=== PATIENT | female | born 1950 | race Caucasian/White ===

== ENCOUNTER → 2023-01-17 | Outpatient (CLI) | payer MEDICARE, SELFPAY ==
--- NOTE | 2023-01-17 14:57 | CT_ITS ---
STUDY: CT ABDOMEN AND PELVIS WITH AND WITHOUT CONTRAST REASON FOR EXAM: Female, 72 years old. GROSS HEMATURIA RADIATION DOSAGE (If Supplied By Facility): CTDIvol = ( 26.15 ) mGy, DLP = ( 4106.19 ) mGycm TECHNIQUE: Transaxial images were obtained from the dome of the diaphragm to the symphysis pubis without oral contrast. IV 100mL Isovue-370 was administered. Sagittal and coronal images were reconstructed. Individualized dose optimization techniques were used for this CT. COMPARISON: None. FINDINGS: The visualized lung bases are unremarkable. Coronary artery calcification. Mild hepatomegaly. Questionable tiny gallstones or sludge in the gallbladder lumen. Normal spleen. Normal pancreas. Normal bilateral adrenal glands. Normal right kidney. Normal left kidney. Normal visualized stomach. Normal small intestine. There are multiple colonic diverticula consistent with diverticulosis. The appendix is visualized and appears normal. There is scattered atherosclerotic calcification of the abdominal aorta, without a demonstrated aneurysm. Normal inferior vena cava. There is borderline retroperitoneal lymphadenopathy with enlarged nodes no greater than 10mm in the short axis diameter. Normal urinary bladder. Normal abdominal wall. There are diffuse degenerative changes of the visualized lumbar spine. The patient is status post right hip replacement. CT/CT Abd/Pelvis W/WO Contrast IMPRESSION: Hepatomegaly. Sludge or gallstones seen in the gallbladder lumen. Electronically Signed: John Barajas MD at 15:29 [facility] ,
[2023-01-17 17:10] LABS: CREATININE FINGERSTICK < 0.9 mg/dL (0.55-1.02); EGFR FINGERSTICK > 60.0000 mL/min (>60)
== END | disposition home or self-care (01) ==
LOC: CT 14:54
PROVIDERS: PCP Family Medicine; Referring Provider Urology; Visit Provider Urology
DX: R31.0 Gross hematuria (principal)
CPT/HCPCS: 74178; Q9967

== ENCOUNTER 2023-05-10 09:11 | Day surgery (SDC) | payer MEDICARE, SELFPAY ==
[2023-05-10] VITALS (8 sets, daily range): BP systolic 144–196; BP diastolic 65–99; PULSE 59–66; RESP 14–16; TEMP 36.2–37.1; O2SAT 76–100; BMI 40.1
--- NOTE | 2023-05-10 | CYSPIN_PTH ---
PATIENT: AARON CAMERON LOC: [facility] [place] U#:[id number] AGE/SX: 73/F ROOM: RE05/10/[address]: Dr. Ermelinda Smith MD : 1950 BED: DIS: 05/10/2023 SPEC #: [id number] RECD: 05/10/23 12:50 STATUS: QI AZUL #: [id number] MADIE: 05/10/23 00:[address]: Ermelinda Smith DEPT: CYTOLOGY RECD BY: Dalton Fitch ENTERED: 05/10/23 12:51 SP TYPE: CYSPIN FL OTHR DR: Dr. Saad Moffett, DO Tissues: A - Urine B - Urine Procedures: Pap Stain (control) Special Stain Group II Cytospin Fluid HEADER OPERATION: Not noted PRE-OP DIAGNOSIS: Gross hematuria TISSUE SUBMITTED: A ? Left ureter for cytology, B ? Right ureter for cytology DIAGNOSIS CYTOLOGY A. Left ureter fluid for cytology (cytospin): Atypical urothelial cells (AUC), Adrienne System Category III. See comment. B. Right ureter fluid for cytology (cytospin): Atypical urothelial cells (AUC), Adrienne System Category III. See comment. SJ:ophelia 05/11/2023 COMMENT A. Red blood cells are noted. B. The specimen is cellular. Correlation with clinical findings and appropriate follow up are necessary. The Adrienne System for urine cytology diagnostic categorization was used in the evaluation of this case. CYTOLOGY STUDY Slides are reviewed. CYTOLOGY GROSS A - Received is 7.5 ml of cloudy light pink fluid labeled with the patient's name and and designated per the requisition as urine. Submitted for cytology preparation. B - Received is 7.5 ml of cloudy colorless fluid labeled with the patient's name and and designated per the requisition as urine. Submitted for cytology preparation. / ophelia 05/10/2023 TC:1 CPT: 57197 x2
[2023-05-10] MEDS: Lactated Ringers 1,000 ML 15 ML IV (09:51)
[2023-05-10 10:13] LABS: Bedside Glucose 126 mg/dL (74-106)
[2023-05-10] MEDS: Cefazolin 2 GM in 0.9% Normal Saline 100 ML IV (10:59)
--- NOTE | 2023-05-10 10:59 | DCINST_ITS ---
Discharge Instructions Diet Discharge Diet: No restrictions Activity Discharge Activity: Return to Normal Activity Dressing / Incision Call your doctor if you observe: Fever of 101 or Higher, Inability to urinate and Inability to have a bowel movement Follow Up Care Please Follow Up With: Ermelinda Smith MD When: call office for appt Test Results: Test results from this visit will be discussed in further detail at your follow- up appointment, if applicable. Discharge Plan Admission Attending Provider: Ermelinda Smith Primary Care Provider: Saad Moffett Discharge Orders/Prescriptions Prescriptions: New oxycodone-acetaminophen [Percocet] 5-325 mg tablet 1 tab PO Q8H PRN (Reason: pain) 2 Days Qty: 8 0RF cephalexin [cephalexin] 500 mg capsule 500 mg PO Q12 3 Days Qty: 6 0RF Continued celecoxib 200 mg capsule 200 mg PO DAILY metformin 500 mg Tablet 500 mg PO DAILY levothyroxine 175 mcg tablet 175 mcg PO DAILY metoprolol succinate 100 mg tablet extended release 24 hr 100 mg PO DAILY Label Comments: TAKE 1 TABLET BY MOUTH EVERY DAY amlodipine 5 mg tablet 5 mg PO DAILY Label Comments: TAKE 1 TABLET BY MOUTH EVERY DAY glimepiride 2 mg tablet 2 mg PO DAILY citalopram 20 mg tablet 20 mg PO DAILY simvastatin 20 mg tablet 20 mg PO DAILY omeprazole 20 mg capsule,delayed release(DR/EC) 20 mg PO DAILY pioglitazone 30 mg tablet 30 mg PO DAILY losartan 100 mg Tablet 100 mg PO DAILY cinnamon bark [Cinnamon] 500 mg Capsule 500 mg PO DAILY Multivitamin Women 50 Plus 8 mg iron-400 mcg-300 mcg Tablet 1 tab PO DAILY Trulicity 0.75 mg/0.5 mL pen injector 0.75 mg SUBCUT MO turmeric 400 mg Capsule 400 mg PO DAILY Referrals / Follow Up: Saad Moffett DO [Primary Care Provider] - Disposition Disposition (needs filled in before D/C Order can be placed): Home, Self Care
--- NOTE | 2023-05-10 11:00 | PCM.OPRPT ---
Problems Associated Problem List Diagnoses (1) Gross hematuria: Report of Operation Date of Procedure: 05/10/23 Pre-Operative Diagnosis: gross hematuria Post-Operative Diagnosis: same Surgery/Procedure Performed:: Cystoscopy, bilateral selective cytology, bilateral ureteroscopy Surgeon: Ermelinda Smith Type of Anesthesia: General Specimen's removed: Bilateral urine from renal pelvis for cytology Description of Procedure: The patient is a 73-year-old female who has had more than 1 episode of gross hematuria. Her CT urogram and cystoscopy were normal. She now presents for bilateral selective cytology and ureteroscopy's. Informed consent was obtained. The patient was taken to the operating room and placed on the operating room table. Anesthesia monitored the head, neck, airway, IV access and vital signs throughout the case. Once anesthesia was appropriately administered, the patient was placed into dorsolithotomy position was prepped and draped in usual sterile fashion. The cystoscope was inserted through the urethra under direct visualization into the urinary bladder. The bladder mucosa was found to be normal. The left ureteral orifice was intubated with a Pollick catheter which was gently advanced to 22 cm. Sterile saline was used to irrigate the renal pelvis and urine was sent for cytologic evaluation. A brand-new Pollick catheter and syringe were used for the patient's right side and the specimen was sent separately. At this time, the right ureteral orifice was intubated with a 0.035 Glidewire. The flexible ureteroscope was placed over the wire and advanced easily into the renal pelvis. Every calyx was directly visualized and the entire length of the ureter was directly visualized as well. There was no evidence of ulcer, mass, area of erythema or concern. There was no foreign body identified. The same process was repeated on the patient's left side with the same negative findings. At this time the patient's bladder was emptied and the cystoscope was removed. The patient was awakened and taken to the recovery room in good condition. There were no complications during this procedure. Complications None Admit VTE Documentation VTE Present on Admission: Yes VTE Mechan Device Prophylaxis: SCD's VTE Pharm Prophylaxis ordered?: No Reason prophylaxis not ordered:: Treatment Not Indicated
[2023-05-10 11:08] LABS: Bedside Glucose 113 mg/dL (74-106)
[2023-05-10 11:46] LABS: Cytology, Body Fluid / CSF SEE PATHOLOGY REPORT
--- NOTE | 2023-05-10 12:25 | SUR.PHASEI ---
BP INCREASING IN PACU. PT HAS PRESSURE IN URETHRA LIKE SHE HAS TO URINATE, BUT TOLERABLE PAIN. DR THOMPSON AT BEDSIDE. PT STATES SHE TOOK HER BP MEDS THIS AM. HE HAS NO ORDERS AT THIS TIME. PT OK TO GO TO D/C.
[2023-05-10] MEDS: Oxycodone/Apap 5/325 Tablet PO (12:59)
[2023-05-10] MEDS: Ketorolac 30 MG/ML Syringe IV (15:14)
[2023-05-10] MEDS: Phenazopyridine 95 MG Tablet 190 MG PO (15:14)
== END 2023-05-10 16:04 | disposition home or self-care (01) ==
LOC: SDC 09:12 → AC 09:13
PROVIDERS: PCP Family Medicine; Referring Provider Urology; Visit Provider Urology
PROC: 0TJ98ZZ Inspection of Ureter, Via Natural or Artificial Opening Endoscopic (ICD-10-PCS; CPT 52352; principal; 2023-05-10 10:35)
DX: R31.0 Gross hematuria (principal); R82.71 Bacteriuria; R35.1 Nocturia; N39.41 Urge incontinence; F32.A Depression, unspecified; K21.9 Gastro-esophageal reflux disease without esophagitis; G47.33 Obstructive sleep apnea (adult) (pediatric); I10 Essential (primary) hypertension
CPT/HCPCS: 52354; 76000; 82962; 88108; 88313; J7120; A4216; J2405

== ENCOUNTER → 2023-05-25 | Outpatient (CLI) | payer MEDICARE, SELFPAY ==
--- NOTE | 2023-05-25 | CYSPIN_PTH ---
PATIENT: AARON CAMERON LOC: [facility] U#:[id number] AGE/SX: 73/F ROOM: RE05/25/[address]: Dr. Ermelinda Smith MD : 1950 BED: DIS: 05/25/2023 SPEC #: [id number] RECD: 05/28/23 12:45 STATUS: QI RENawaf #: [id number] MADIE: 05/25/23 00:[address]: Ermelinda Smith DEPT: CYTOLOGY RECD BY: Conrad Mcfadden ENTERED: 05/28/23 12:45 SP TYPE: CYSPIN FL OTHR DR: Dr. Saad Moffett, DO Tissues: Urine Procedures: Pap Stain (control) Special Stain Group II Cytospin Fluid HEADER OPERATION: Not noted PRE-OP DIAGNOSIS: Gross hematuria TISSUE SUBMITTED: Urine for cytology DIAGNOSIS CYTOLOGY Urine for cytology (cytospin): Negative for high-grade urothelial carcinoma (NHGUC), Adrienne System Category II. See comment. AM:ophelia 05/30/2023 COMMENT The Adrienne System for urine cytology diagnostic categorization was used in the evaluation of this case. CYTOLOGY STUDY Slides are reviewed. CYTOLOGY GROSS Received is 20 ml of gold cloudy fluid labeled with the patient's name and and designated per the requisition as urine. Submitted for cytology preparation. / ophelia 05/28/2023 TC:5 CPT: 65791
[2023-05-25 16:23] LABS: Cytology, Body Fluid / CSF SEE PATHOLOGY REPORT
== END | disposition home or self-care (01) ==
LOC: LABSPEC 16:07
PROVIDERS: PCP Family Medicine; Referring Provider Urology; Visit Provider Urology
DX: R31.0 Gross hematuria (principal)
CPT/HCPCS: 88108; 88313